=== PATIENT | male | born 1940 | race Caucasian/White ===

== ENCOUNTER 2016-03-13 14:15 | Emergency (ER) | payer MEDICARE ==
[~2016-03-13] VITALS: Ht 170.2 cm; Wt 63.5 kg
[2016-03-13 14:34] VITALS: BP 144/85
== END 2016-03-13 15:56 | disposition home or self-care (01) ==
LOC: ER 14:17
DX: H00.015 Hordeolum externum left lower eyelid (principal); F17.210 Nicotine dependence, cigarettes, uncomplicated
CPT/HCPCS: A4606; Z7610